=== PATIENT | female | born 1950 | race Caucasian/White ===

== ENCOUNTER → 2016-10-01 | Outpatient (CLI) | payer BC | END | disposition home or self-care (01) | LOC: CFH 10:22 | PROVIDERS: ATTEND Specialist | DX: Z12.31 Encounter for screening mammogram for malignant neoplasm of breast (principal) | CPT/HCPCS: G0202 ==

== ENCOUNTER → 2016-10-14 | Outpatient (CLI) | payer BC | END | disposition home or self-care (01) | LOC: CFH 08:37 | PROVIDERS: ATTEND Internal Medicine Cardiovascular Disease | DX: R07.9 Chest pain, unspecified (principal) | CPT/HCPCS: 78452; 93017; A9502 ==

== ENCOUNTER → 2017-04-08 | Outpatient (CLI) | payer BC ==
[~2017-04-08] MED LIST: ASPI-496 PO; ATOR20TA PO; CHOL40002 PO; CYAN1TAB29 PO; ESTR42.53 TP; FOCUS FACTOR PO; IRON PO; MAGN500T PO; TIMO1DRO EACHEYE; [UNRECOGNIZED DRUG - OTHER] TP
[2017-04-08 11:59] LABS: HEMATOCRIT 42.6 % (34.6-47.8); HEMOGLOBIN 14.5 g/dL (11.7-16.4); WHITE BLOOD COUNT 6.9 x10^3/uL (3.4-10)
[2017-04-08 12:17] LABS: BLOOD UREA NITROGEN 10 mg/dL (7-18)
== END | disposition home or self-care (01) ==
LOC: STAR 10:03
PROVIDERS: ATTEND Obstetrics & Gynecology Female Pelvic Medicine and Reconstructive Surgery
DX: Z01.818 Encounter for other preprocedural examination (principal); N39.3 Stress incontinence (female) (male); N81.6 Rectocele; N81.10 Cystocele, unspecified
CPT/HCPCS: 36415; 80048; 85025; 93005

== ENCOUNTER 2017-04-27 07:09 | Day surgery (SDC) | payer BC ==
[~2017-04-27] VITALS: Ht 152.4 cm; Wt 73.9 kg
[2017-04-27 07:36] VITALS: BP 120/79
[2017-04-27] MEDS ORDERED: LACTATED RINGERS 1,000 ML IV SCH ×2 (07:38→12:00)
[2017-04-27] MEDS ORDERED: LIDOCAINE 1%, 2ML SQ PRN (08:00)
[2017-04-27] MEDS ORDERED: BUPIVACAINE/PF 0.25% ONE ×2 (08:15→09:07)
[2017-04-27] MEDS ORDERED: FLUORESCEIN SODIUM 500 MG/5 ML ONE (08:15)
[2017-04-27] MEDS ORDERED: EPINEPHRINE 1 MG/ML, 1ML ONE (08:15)
[2017-04-27] MEDS ORDERED: FENTANYL PF 250 MCG/5ML ONE (08:32)
[2017-04-27] MEDS ORDERED: MIDAZOLAM 1 MG/ML, 2ML ONE ×2 (08:32→09:06)
[2017-04-27] MEDS ORDERED: GLYCOPYRROLATE 0.2MG/1ML, 5ML ONE ×2 (08:33→09:06)
[2017-04-27] MEDS ORDERED: NEOSTIGMINE 1 MG/ML, 10ML ONE ×2 (08:33→09:06)
[2017-04-27] MEDS ORDERED: ROCURONIUM 10 MG/ML,10ML ONE ×2 (08:33→09:06)
[2017-04-27] MEDS ORDERED: DEXAMETHASONE 4 MG/ML, 1ML ONE (08:33)
[2017-04-27] MEDS ORDERED: CEFAZOLIN 1,000 MG ONE ×2 (08:33→09:06)
[2017-04-27] MEDS ORDERED: PROPOFOL 10 MG/ML, 20ML ONE ×2 (08:33→09:06)
[2017-04-27] MEDS ORDERED: ONDANSETRON 2MG/ML, 2ML ONE ×2 (08:33→09:06)
[2017-04-27] MEDS ORDERED: SUCCINYLCHOLINE 20 MG/ML, 10ML ONE (08:33)
[2017-04-27] MEDS ORDERED: LIDOCAINE GEL 2%, 5ML ONE (08:34)
[2017-04-27] MEDS ORDERED: LIDOCAINE-MPF 2% ,5ML ONE (08:34)
[2017-04-27] MEDS ORDERED: LABETALOL 5MG/ML 40ML VIAL ONE (09:06)
[2017-04-27] MEDS ORDERED: FLUORESCEIN OPHTHALMIC 1 MG STRIP ONE (09:06)
[2017-04-27] MEDS ORDERED: KETOROLAC 30 MG/1 ML ONE ×2 (09:06→10:53)
[2017-04-27] MEDS ORDERED: EPHEDRINE 50 MG/ML, 1ML ONE (09:06)
[2017-04-27] MEDS ORDERED: FENTANYL PF 100 MCG/2ML ONE (09:06)
[2017-04-27] MEDS ORDERED: THROMBIN 5,000 UNIT VIAL TP ONE ×2 (09:07→10:04)
[2017-04-27] MEDS ORDERED: NEOMY/POLYMYXIN B GU IRR. 1 ML IRRIG ONE ×2 (09:08→10:05)
[2017-04-27] MEDS ORDERED: BUPIVACAINE/PF 0.25% INFIL ONE ×2 (09:55→10:03)
[2017-04-27] MEDS ORDERED: EPINEPHRINE 1 MG/ML, 1ML INFIL ONE (10:03)
[2017-04-27] MEDS ORDERED: DIAZEPAM 5 MG/ML, 2ML IVPush PRN (11:00)
[2017-04-27] MEDS ORDERED: ONDANSETRON 2MG/ML, 2ML IVPush PRN ×2 (11:00→11:30)
[2017-04-27] MEDS ORDERED: MEPERIDINE/PF 25MG/0.5ML IVPush PRN (11:00)
[2017-04-27] MEDS ORDERED: ALBUTEROL/IPRATROPIUM 2.5MG/0.5MG, 3 ML NPPB PRN (11:00)
[2017-04-27] MEDS ORDERED: MIDAZOLAM 1 MG/ML, 2ML IV PRN (11:00)
[2017-04-27] MEDS ORDERED: LABETALOL 5MG/ML, 20ML IV PRN (11:00)
[2017-04-27] MEDS ORDERED: ACETAMINOPHEN 325 MG TABLET PO PRN (11:00)
[2017-04-27] MEDS ORDERED: PROMETHAZINE 25 MG/ML, 1ML IV PRN (11:00)
[2017-04-27] MEDS ORDERED: hydrALAzine 20 MG/ML, 1ML IV PRN (11:00)
[2017-04-27] MEDS ORDERED: FENTANYL PF 100 MCG/2ML IV PRN (11:00)
[2017-04-27] MEDS ORDERED: OXYcodone 5 MG/5 ML ORAL.SOL UDC PO PRN (11:00)
[2017-04-27] MEDS ORDERED: HYDROmorphone 1 MG/ML, 1ML IV PRN (11:00)
[2017-04-27] MEDS ORDERED: LABETALOL 5MG/ML, 20ML ONE (11:14)
[2017-04-27] MEDS ORDERED: HYDROcodone/APAP 5/325 TABLET PO PRN (11:30)
[2017-04-27] MEDS ORDERED: IBUPROFEN 600 MG TABLET PO PRN (11:30)
[2017-04-27] MEDS ORDERED: PROMETHAZINE 25 MG SUPP PR ONE (11:30)
[2017-04-27] MEDS ORDERED: ACETAMINOPHEN 650 MG/20.3 ML UDC ONE (11:50)
== END 2017-04-27 15:45 ==
LOC: OUT 07:09
PROVIDERS: ATTEND Obstetrics & Gynecology Female Pelvic Medicine and Reconstructive Surgery
DX: D25.9 Leiomyoma of uterus, unspecified (principal); N39.3 Stress incontinence (female) (male); N99.3 Prolapse of vaginal vault after hysterectomy; E78.5 Hyperlipidemia, unspecified; G89.18 Other acute postprocedural pain; J21.9 Acute bronchiolitis, unspecified; G43.909 Migraine, unspecified, not intractable, without status migrainosus; D64.9 Anemia, unspecified; Z88.0 Allergy status to penicillin; Z98.84 Bariatric surgery status; Z98.890 Other specified postprocedural states; Z90.710 Acquired absence of both cervix and uterus; Z88.6 Allergy status to analgesic agent; Z88.5 Allergy status to narcotic agent
CPT/HCPCS: 57260; 57288; 57425; 71010; C1771; C1781; J0171; J0330; J0690; J1100; J1885; J2250; J2405; J2704; J2710; J3010; J3490; J7120

== ENCOUNTER 2019-01-03 09:09 | Outpatient (CLI) | payer OTHER | END 2019-01-03 23:59 | disposition home or self-care (01) | LOC: CFH 09:09 → EDSTATUS 12:45 → CFH 23:59 | PROVIDERS: ATTEND Nurse Practitioner Family | DX: Z12.31 Encounter for screening mammogram for malignant neoplasm of breast (principal) | CPT/HCPCS: 77063; 77067 ==

== ENCOUNTER → 2020-01-05 | Outpatient (CLI) | payer MEDICARE | END | disposition home or self-care (01) | LOC: CFH 12:29 | PROVIDERS: ATTEND Family Medicine | DX: Z12.31 Encounter for screening mammogram for malignant neoplasm of breast (principal) | CPT/HCPCS: 77063; 77067 ==